=== PATIENT | male | born 2005 | race Caucasian/White ===

== ENCOUNTER 2024-12-01 09:02 | Emergency (ER) | payer OTHER, SELFPAY ==
--- NOTE | ~2024-12-01 | XR_ITS ---
Exam: Abdomen 1V HISTORY: stone location COMPARISON: Reference is made to a contrast-enhanced CT examination of the abdomen and pelvis, perfor med on the same day TECHNIQUE: Supine images of the abdomen FINDINGS: Bowel gas pattern is nonspecific and non-obstructive. There is no free air or deep sulci. The bladder is significantly distended and opacified with excreted intravenous contrast, distorting t he underlying view of the presence or absence of calculi. A caliber change of the right ureter is detected at the level of the superior endplate of L4, corresp onding to the abnormality seen on CT examination consistent with a 3.5 mm calculus. Repeat evaluation following bladder emptying is recommended for definitive localization. IMPRESSION: 3.5 mm calculus is suspected within the mid right ureter, as detailed above. Repeat evaluation following bladder emptying is recommended for definitive localization. Reviewed, dictated and finalized at location A. IMPRESSION: 3.5 mm calculus is suspected within the mid right ureter, as detailed above. Repeat evaluation following bladder emptying is recommended for definitive loca lization.
--- NOTE | ~2024-12-01 | CT_ITS ---
EXAMINATION: CT abdomen pelvis w con DATE: 12/01/2024 10:50 INDICATION: Abdominal pain TECHNIQUE: Computed tomography (CT) of the abdomen and pelvis was performed with 100 mL Omnipaque-350 intravenous contrast. Automated exposure control and iterative reconstruction technique were employe d. The dose-length product was 1056.21 mGy-cm. COMPARISON: None FINDINGS: Lung bases are clear. Heart size is normal. No pericardial or pleural effusion. Liver, gallbladder, s pleen, pancreas, bilateral adrenal glands and left kidney are normal. The right kidney appears relati vely small with mild hydronephrosis and 8 delayed right nephrogram secondary to an obstructing 4 mm s tone at the proximal right ureter. Bladder is normal. Bowels including the appendix are normal. No fr ee intraperitoneal gas or fluid. No pathologically enlarged mild lumbar spondylosis. lymphadenopathy. IMPRESSION: 1. Obstructing 4 mm proximal right ureteral stone with mild right hydronephrosis. Reviewed, dictated and finalized at location B. IMPRESSION: 1. Obstructing 4 mm proximal right ureteral stone with mild right hydronephrosi s.
[2024-12-01 09:25] VITALS: BP 149/62; PULSE 80; RESP 18; TEMP 37.1; O2SAT 100
[2024-12-01 09:35] LABS: Basophils Absolute Auto 0.1 K/mm3 (0.0-0.1); Basophils Percent Auto 0.5 % (0.2-1.2); Eosinophils Absolute Auto 0.2 K/mm3 (0-0.3); Hematocrit 44.1 % (42.0-52.0); Immature Granulocyte Absolute 0.03 K/mm3 (0.00-0.031); Immature Granulocyte Percent A 0.3 % (0-0.5); Lymphocytes Absolute Auto 2.97 K/mm3 (0.9-3.2); Lymphocytes Percent Auto 27.7 % (18.3-44.2); Mean Corpuscular HGB Conc 31.7 g/dl (32-36); Mean Corpuscular Hemoglobin 27.2 pg (26-34); Mean Corpuscular Volume 85.6 fl (80-100); Mean Platelet Volume 10.7 fl (7.4-10.4); Monocytes Absolute Auto 0.9 K/mm3 (0.1-0.6); Monocytes Percent Auto 8.8 % (2.6-8.5); Neutrophils Absolute Auto 6.5 K/mm3 (1.3-6.7); Neutrophils Percent Auto 60.7 % (45.5-73.1); Platelet Count Result 269 k/mm3 (150-375); Red Blood Count 5.15 M/mm3 (4.6-6.20); Red Cell Distribution Width 13.2 % (11.5-14.5); White Blood Count 10.7 K/mm3 (4.5-10.0)
[2024-12-01 09:46] LABS: Alanine Aminotransferase 31 U/L (6-50); Alkaline Phosphatase 61 U/L (38-126); Anion Gap 11 mmol/L (4-12); Aspartate Amino Transferase 21 U/L (17-59); Bilirubin,Total 1.3 mg/dL (0.2-1.3); Blood Urea Nitrogen 8 mg/dL (9-20); Calcium 9.4 mg/dL (8.4-10.2); Carbon Dioxide 27 mmol/L (22-30); Chloride 103 mmol/L (98-107); Estimated Glomerular Filt Rate > 60; Glucose 102 mg/dL (65-110); Lipase 52 U/L (23-300); Potassium 3.5 mmol/L (3.4-5.0); Sodium 141 mmol/L (137-145)
[2024-12-01 10:10] LABS: Bacteria Urine None Seen /hpf; Need Manual Microscopic Reviewed; Non Pathogenic Casts 0-2; RBC Urine >100 /hpf (0-2); Squamous Epithelial Cell Urine None Seen /hpf (Few); WBC Urine 0-5 /hpf (0-3)
[2024-12-01 10:24] LABS: Appearance Urine Cloudy (Clear); Color Urine Yellow (Yellow); Glucose Urine UA Negative (Negative); Protein Urine 1+ (Negative); Specific Grav Ur 1.025 (1.010-1.020)
[2024-12-01 10:25] LABS: Bilirubin Urine Negative (Negative); Blood Urine 3+ (Negative); Ketones Urine Negative (Negative); Nitrate Urine Negative (Negative)
--- NOTE | 2024-12-01 10:25 | ED_ITS ---
HPI - Abdominal Pain General Chief Complaint: Abdominal Pain Stated Complaint: RLQ pain x 12 hours Time Seen by Provider: 12/01/24 09:10 History of Present Illness HPI narrative: Patient is a 19-year-old male who presents to the ER with complaints of abdominal pain that started abruptly around 8:00 p.m. last night. He reports pain was so bad that he was unable to sleep. Patient reports his abdominal pain moves around his right upper and lower quadrants. He denies any recent fevers, urinary symptoms, or back pain. Patient endorses a history of GERD and ruptured tympanic membranes as a child. He denies any history of kidney stones. Patient reports his last bowel movement was yesterday, November 30, and it was normal for him. Related Data Allergies Allergy/AdvReac Type Severity Reaction Status Date / Time No Known Allergies Allergy Verified 12/01/24 09:03 Review of Systems 2 Review of Systems: All systems reviewed & are unremarkable except as noted in HPI and below Exam 2 Narrative: GENERAL: Well appearing, well-nourished, non-toxic, in no acute distress. HEAD: Normocephalic, atraumatic. NECK: Supple. No adenopathy, no masses. RESPIRATORY: Airway patent, respirations nonlabored. Clear to auscultation bilaterally, no rales, rhonchi, wheezing. CARDIOVASCULAR: Regular rate and rhythm without murmurs, rubs, or gallops. Peripheral pulses 2+ and equal bilaterally. ABDOMINAL: Soft, mildly tender, nondistended, no hepatosplenomegaly. Normoactive BS. + Guzman's sign, Negative Psoas sign, Negative McBurney's point, negative CVA tenderness MUSCULOSKELETAL: Moves all extremities. Strength/ROM intact without gross deformities. SKIN: Warm, dry, normal color. No rashes. NEURO: A&O X3. Speech clear. Cranial nerves II-XII intact. No ataxic movements. PSYCHIATRIC: Appropriate mood and affect. Normal interaction. Course Vital Signs Vital signs: Vital Signs Temperature 37.1 C 12/01/24 09:25 Pulse Rate 80 12/01/24 09:25 Respiratory Rate 18 12/01/24 09:25 Blood Pressure 149/62 H 12/01/24 09:25 Pulse Oximetry 100 12/01/24 09:25 Temperature 37.1 C 12/01/24 09:25 Pulse Rate 78 12/01/24 12:52 Respiratory Rate 17 12/01/24 12:52 Blood Pressure 140/79 12/01/24 12:52 Pulse Oximetry 100 12/01/24 12:52 MDM - Abdominal Pain MDM Narrative Medical decision making narrative: Patient is a 19-year-old male who presents to the ER with complaints of abdominal pain that started abruptly around 8:00 p.m. last night. He reports pain was so bad that he was unable to sleep. Patient reports his abdominal pain moves around his right upper and lower quadrants. He denies any recent fevers, urinary symptoms, or back pain. Patient endorses a history of GERD and ruptured tympanic membranes as a child. He denies any history of kidney stones. Patient reports his last bowel movement was yesterday, November 30, and it was normal for him. Labs Ordered: CBC, CMP, UA, lipase Imaging Ordered: CT abdomen pelvis, KUB Medications Ordered: 1 L normal saline IV bolus, Flomax p.o. Results: Patient's CT scan indicates Obstructing 4 mm proximal right ureteral stone with mild right hydronephrosis. Diagnosis: Right ureteral stone Consults: 1145- Spoke with urology who will come assess the pt in the ER. 1300-Urology is in agreement with patient being discharged home with strict instructions for rehydration and a prescription for Flomax. Patient Education/Shared MDM: Results of imaging and lab work shared with patient. He endorses improvement following IV fluid administration. Patient strongly advised to maintain hydration status upon discharge and follow-up with urology as soon as possible. He will be discharged home with a prescription for Flomax and Naproxen. Strict return precautions provided. Patient verbalized understanding and is in agreement with plan. Vital signs stable at time of discharge. All questions answered. Differential Diagnosis Differential diagnosis: Likely abdominal pain, acute appendicitis, calculus of kidney, gastroenteritis and small bowel obstruction Lab Data Attestation: I reviewed the patient's lab results. 12/01/24 09:20 12/01/24 09:20 Labs: Lab Results 12/01/24 12/01/24 Range/Units 09:20 09:32 WBC 10.7 H (4.5-10.0) K/mm3 RBC 5.15 (4.6-6.20) M/mm3 Hgb 14.0 (14.0-18.0) g/dL Hct 44.1 (42.0-52.0) % MCV 85.6 (80-100) fl MCH 27.2 (26-34) pg MCHC 31.7 L (32-36) g/dl RDW 13.2 (11.5-14.5) % Plt Count 269 (150-375) k/mm3 MPV 10.7 H (7.4-10.4) fl Immature Gran % (Auto) 0.3 (0-0.5) % Neut % (Auto) 60.7 (45.5-73.1) % Lymph % (Auto) 27.7 (18.3-44.2) % [place] % (Auto) 8.8 H (2.6-8.5) % Eos % (Auto) 2.0 (0-4.4) % Baso % (Auto) 0.5 (0.2-1.2) % Lymph # (Auto) 2.97 (0.9-3.2) K/mm3 [place] # (Auto) 0.9 H (0.1-0.6) K/mm3 Eos # (Auto) 0.2 (0-0.3) K/mm3 Baso # (Auto) 0.1 (0.0-0.1) K/mm3 Abs Immat Gran (auto) 0.03 (0.00-0.031) K/mm3 Absolute Neuts (auto) 6.5 (1.3-6.7) K/mm3 Absolute Nucleated RBC 0.000 (0.0-0.012) K/mm3 Nucleated RBC % 0.0 (0.0-0.2) % Sodium 141 (137-145) mmol/L Potassium 3.5 (3.4-5.0) mmol/L Chloride 103 (98-107) mmol/L Carbon Dioxide 27 (22-30) mmol/L Anion Gap 11 (4-12) mmol/L BUN 8 L (9-20) mg/dL Creatinine 0.84 (0.7-1.3) mg/dL Estim Creat Clear Calc Not Reportable Estimated GFR > 60 (59 - ) Glucose 102 (65-110) mg/dL Calcium 9.4 (8.4-10.2) mg/dL Total Bilirubin 1.3 (0.2-1.3) mg/dL AST 21 (17-59) U/L ALT 31 (6-50) U/L Alkaline Phosphatase 61 (38-126) U/L Total Protein 8.0 (6.3-8.2) g/dL Albumin 5.0 (3.5-5.1) g/dL Lipase 52 (23-300) U/L Urine Color Yellow (Yellow) Urine Appearance Cloudy A (Clear) Urine pH 6.0 (5.0-8.0) Ur Specific [place] 1.025 H (1.010-1.020) Urine Protein 1+ H (Negative) Urine Glucose (UA) Negative (Negative) Urine Ketones Negative (Negative) Ur Blood (Man) 3+ H (Negative) Urine Nitrate Negative (Negative) Urine Bilirubin Negative (Negative) Urine Urobilinogen 0.2 (0.2-1.0) mg/dL Add Ur Microanalysis Reviewed Leukocyte Esterase Rfl Negative (Negative) GEOVANNA/UL Urine RBC >100 H (0-2) /hpf Urine WBC 0-5 (0-3) /hpf Ur Squamous Epith Cells None seen (Few) /hpf Urine Bacteria None seen /hpf Urine Casts 0-2 Imaging Data Attestation: I personally reviewed and interpreted this imaging study as follows: Radiologist's impression: ITS Impressions Abdomen/Pelvis CT 12/01/24 11:01 IMPRESSION: 1. Obstructing 4 mm proximal right ureteral stone with mild right hydronephrosis. Discharge Plan Discharge Clinical Impression: Right nephrolithiasis, Hydronephrosis of right kidney Patient Disposition: Home Condition: Stable Instructions: Antibiotic Form, Kidney Stones (ED), How to Strain Your Urine (ED) Additional Instructions: Please return to the ER with any worsening symptoms. Follow-up with urology as soon as possible. Take all medications as prescribed. You may use Tylenol and ibuprofen for pain control. Patient Language: Georgian Prescriptions: New tamsulosin [Flomax] 0.4 mg capsule 0.4 mg PO DAILY Qty: 10 0RF Follow-up/Referrals: Maximus Wyman MD [Physician] - (urology) UNKNOWN,DOCTOR [Primary Care Provider] - Stand Alone Forms: Work/School Release IP Time of Disposition: 13:26
[2024-12-01 10:26] LABS: Add Urine Microscopic? YES; Leukocyte Esterase Ur Negative LEU/UL (Negative); Urobilinogen Urine 0.2 mg/dL (0.2-1.0)
[2024-12-01] MEDS: SODIUM CHLORIDE 0.9% IV 1,000 ML 999 ML IV CONT (11:01)
[2024-12-01 12:52] VITALS: BP 140/79; PULSE 78; RESP 17; O2SAT 100
[2024-12-01] MEDS: TAMSULOSIN HCL 0.4 MG CAPSULE PO (12:59)
--- NOTE | 2024-12-01 13:01 | WPDURCON ---
Assessment and Plan Assessment and plan (1) Right nephrolithiasis: Code(s): N20.0 - Calculus of kidney Status: Acute (2) Hydronephrosis of right kidney: Code(s): N13.30 - Unspecified hydronephrosis Status: Acute Plan CT abd and pelvis w con showed Obstructing 4 mm proximal right ureteral stone with mild right hydronephrosis. Start flomax 0.4mg daily KUB in ER before discharge Push fluids at home Follow up as outpatient with [facility] with Dr. Wyman or Manjula Mendez [facility]. Obtain KUB before appointment. Urology Consult Note HPI Date Seen: 12/01/24 Primary Care Provider: UNKNOWN,DOCTOR Consult Narrative Narrative: Dillon Coffey is a 19 year old male who presents to the ER with complaints of abdominal pain that started abruptly around 8:00 p.m. last night. He reports pain was so bad that he was unable to sleep. Patient reports his abdominal pain moves around his right upper and lower quadrants. He denies any recent fevers, urinary symptoms, or back pain. Patient endorses a history of GERD and ruptured tympanic membranes as a child. He denies any history of kidney stones. Patient reports his last bowel movement was yesterday, November 30, and it was normal for him. Review of Systems Review of Systems: All systems reviewed & are unremarkable except as noted in HPI and below Meds Home Medications and Allergies Allergies Allergy/AdvReac Type Severity Reaction Status Date / Time No Known Allergies Allergy Verified 12/01/24 09:03 Vital Signs Vital Signs - 24 hr 12/01/24 09:25 12/01/24 12:52 Temperature 98.8 F Pulse Rate 80 78 Respiratory Rate 18 17 Blood Pressure 149/62 H 140/79 Pulse Oximetry 100 100 Exam Const: General: comfortable and no acute distress HENMT: Mouth: Yes moist mucous membranes abnormal Eyes: General: appearance normal, both eyes and all related structures Neck: Neck: supple Resp: Effort & Inspection: normal respiratory effort Skin: General skin exam: normal color and no rashes or lesions noted Neuro: General: gait normal Speech: normal speech Psych: Speech and movement: Normal speech and movement present Results Labs 12/01/24 09:20 12/01/24 09:20 Labs: Short CBC 12/01/24 Range/Units 09:20 WBC 10.7 H (4.5-10.0) K/mm3 Hgb 14.0 (14.0-18.0) g/dL Hct 44.1 (42.0-52.0) % Plt Count 269 (150-375) k/mm3 BMP 12/01/24 09:20 Sodium 141 Potassium 3.5 Chloride 103 Carbon Dioxide 27 BUN 8 L Creatinine 0.84 Glucose 102 Calcium 9.4 Liver Function 12/01/24 Range/Units 09:20 Total Bilirubin 1.3 (0.2-1.3) mg/dL AST 21 (17-59) U/L ALT 31 (6-50) U/L Alkaline Phosphatase 61 (38-126) U/L Albumin 5.0 (3.5-5.1) g/dL Urine 12/01/24 Range/Units 09:32 Urine Color Yellow (Yellow) Urine Appearance Cloudy A (Clear) Urine pH 6.0 (5.0-8.0) Ur Specific [place] 1.025 H (1.010-1.020) Urine Protein 1+ H (Negative) Urine Glucose (UA) Negative (Negative) Imaging Radiologist's impression: Obstructing 4 mm proximal right ureteral stone with mild right hydronephrosis.
== END 2024-12-01 14:11 | disposition home or self-care (01) ==
PROVIDERS: Emergency Provider Registered Nurse
DX: N13.2 Hydronephrosis with renal and ureteral calculous obstruction (principal)
CPT/HCPCS: 36415; 74018; 74177; 80053; 81001; 83690; 85025; 96360; 99284; A9270; J7030; Q9967

== ENCOUNTER 2024-12-08 15:40 | Outpatient (CLI) | payer OTHER, SELFPAY ==
--- NOTE | ~2024-12-08 | XR_ITS ---
Exam: Abdomen 1V HISTORY: Unspecified COMPARISON: 12/01/2024 TECHNIQUE: Supine images of the abdomen FINDINGS: Bowel gas pattern is nonspecific and non-obstructive. There is no free air or deep sulci. No pathologic calcifications are seen. Specifically, the 3.5 mm calculus within the mid right ureter is not visualized on the current study. IMPRESSION: Nonspecific, nonobstructive bowel gas pattern. The 3.5 mm calculus within the mid right ureter is not visualized on the current study. Reviewed, dictated and finalized at location A. IMPRESSION: Nonspecific, nonobstructive bowel gas pattern. The 3.5 mm calculus within the mid right ureter is not visualized on the curren t study.
== END 2024-12-08 15:41 | disposition home or self-care (01) ==
LOC: MICIMG 15:45
PROVIDERS: PCP Urology; Visit Provider Urology
DX: N20.1 Calculus of ureter (principal)
CPT/HCPCS: 74018